=== PATIENT | male | born 1940 ===

== ENCOUNTER 2021-12-07 13:36 | Observation (INO) ==
[2021-12-07 14:17] LABS: ABS Eosinophils 0.1 10^3/ul (0-0.6); ABS Monocytes 0.4 10^3/ul (0-0.8); ABS Neutrophils 2.5 10^3/ul (1.5-7.7); Eosinophil % 2.1 %; Hematocrit 43 % (42-52); Hemoglobin 14.5 g/dL (14.0-18.0); Lymphocyte % 24.6 %; Mean Corpuscular HGB Conc 34 g/dL (31-36); Mean Corpuscular Hemoglobin 32 pg (27-31); Mean Corpuscular Volume 95 fL (80-94); Mean Platelet Volume 8.5 fL (7.4-10.4); Nucleated Red Blood Cells % 0.1; Platelet Count 166 10^3/uL (150-450); Red Cell Distribution Width 14 % (10-15); White Blood Count 3.9 10^3/uL (3.5-10.8)
[2021-12-07 14:59] LABS: Calcium 9.5 mg/dL (8.6-10.3); Potassium 4.5 mmol/L (3.5-5.0); eGFR CKD-EPI 76.1 (>60)
[2021-12-07] MEDS ORDERED: hydrALAZINE 20 mg/ml 1 ML Vial IV IV SLOW PU ONE (19:43)
[2021-12-07 20:57] LABS: High Sensitivity Troponin 1 Hr 7 pg/mL (<20)
[2021-12-07] MEDS ORDERED: Nitro 2% OINT (Nitroglycerin) 1 INCH/PAK TOPICAL ONE (21:51)
[2021-12-08 06:25] LABS: ABS Eosinophils 0.1 10^3/ul (0-0.6); ABS Lymphocytes 0.8 10^3/ul (1.0-4.8); ABS Monocytes 0.5 10^3/ul (0-0.8); ABS Neutrophils 2.5 10^3/ul (1.5-7.7); Eosinophil % 3.1 %; Hematocrit 41 % (42-52); Hemoglobin 14.1 g/dL (14.0-18.0); Lymphocyte % 19.5 %; Mean Corpuscular HGB Conc 34 g/dL (31-36); Mean Corpuscular Hemoglobin 32 pg (27-31); Mean Corpuscular Volume 94 fL (80-94); Mean Platelet Volume 8.7 fL (7.4-10.4); Platelet Count 165 10^3/uL (150-450); Red Blood Count 4.36 10^6 /uL (4.18-5.48); Red Cell Distribution Width 14 % (10-15); White Blood Count 3.9 10^3/uL (3.5-10.8)
[2021-12-08 06:55] LABS: HDL Cholesterol 86.2 mg/dL; eGFR CKD-EPI 88.5 (>60)
[2021-12-08] MEDS ORDERED: Enoxaparin 40 MG/0.4 ML SYR SUBCUT SCH (09:00)
[2021-12-08 09:10] VITALS: BP 169/85
== END 2021-12-08 13:00 | disposition home or self-care (01) ==
LOC: EDHOLD 13:36 → ED 13:36 → MEDTELE 12-08 08:59
PROVIDERS: ADMIT Internal Medicine; ATTEND Internal Medicine

== ENCOUNTER 2023-08-22 04:34 | Observation (INO) ==
[2023-08-22 05:00] LABS: ABS Eosinophils 0.1 10^3/uL (0.0-0.5); ABS Lymphocytes 1.2 10^3/uL (1.0-4.8); ABS Monocytes 0.5 10^3/uL (0.0-1.1); ABS Neutrophils 2.8 10^3/uL (1.5-7.6); Eosinophil % 2.2 %; Hematocrit 41.2 % (38-53); Hemoglobin 14.1 g/dL (13.2-16.3); Lymphocyte % 26.2 %; Mean Corpuscular Hemoglobin 32.3 pg (27-33); Mean Corpuscular Hgb Conc 34.1 g/dL (31-36); Mean Corpuscular Volume 94.5 fL (80-97); Mean Platelet Volume 8.3 fL (7.5-11.2); Platelet Count 180 10^3/uL (150-450); Red Blood Count 4.36 10^6/uL (4.06-5.63); Red Cell Distribution Width 13.2 % (12-17); White Blood Count 4.7 10^3/uL (3.6-10.2)
[2023-08-22 05:13] LABS: INR 0.96 (0.83-1.13)
[2023-08-22 05:21] LABS: Albumin/Globulin Ratio 1.5 (1-3); Calcium 9.3 mg/dL (8.6-10.3); Creatinine, Serum 0.79 mg/dL (0.67-1.17); Globulin 2.7 g/dL (2-4); Potassium 3.9 mmol/L (3.5-5.0); Total Bilirubin 0.9 mg/dL (0.2-1.0); Total Protein 6.7 g/dL (6.4-8.9); eGFR CKD-EPI 89.2 (>60)
[2023-08-22 06:40] LABS: High Sensitivity Troponin 1 Hr 6 pg/mL (<20)
[2023-08-22] MEDS ORDERED: Iohexol 350 (CONTRAST) 500 ML MDV IV ONE (13:59)
[2023-08-22 18:01] LABS: HDL Cholesterol 73.2 mg/dL
[2023-08-23 11:37] VITALS: BP 158/80
== END 2023-08-23 15:50 | disposition home or self-care (01) ==
LOC: ED 04:34 → EDHOLD 04:34 → MEDTELE 19:36
PROVIDERS: ADMIT Hospitalist; ATTEND Hospitalist